=== PATIENT | male | born 1940 | race Caucasian/White ===

== ENCOUNTER 2020-01-10 15:50 | Emergency (ER) | payer MEDICARE, SELFPAY ==
--- NOTE | 2020-01-10 15:54 | ED.EAR ---
HPI - Ear Problem General Chief complaint: Skin/Abscess/Foreign Body Stated complaint: PIECE OF HEARING AID STUCK IN RIGHT EAR Time Seen by Provider: 01/10/20 15:54 Source: patient Mode of arrival: Ambulatory Limitations: no limitations History of Present Illness HPI Narrative: This is a pleasant 79-year-old male who comes to the emergency department with complaint of a piece of his hearing aid stuck in his right ear. Patient states that he thinks happened last night. He took his hearing aid out, he went to put it back in while he was watching TV and felt pain when he lifted at the cover piece that is normally inserted into the ear was missing. Patient states he tried several times he thinks he pushed it in deeper into the ear. He states it is uncomfortable but not painful. He denies any other symptoms or issues. Related Data Allergies Allergy/AdvReac Type Severity Reaction Status Date / Time No Known Drug Allergies Allergy Verified 01/10/20 16:57 Review of Systems Review of Systems ROS Unobtainable: All systems reviewed & are unremarkable except as noted in HPI and below Patient History Social History Smoking Status: Former smoker Exam Narrative Exam Narrative: GEN: well nourished, well appearing male, alert and oriented x 3, patient appears to be in mild distress. HEENT: Atraumatic, pupils are equal round reactive to light, extraocular movements are intact, and patient's right ear I am able to visualize a clear plastic cover for hearing aid, it is fairly deep, there is no erythema, swelling or other changes to the inner canal or outer ear. HEART: Regular rate and rhythm without murmur, clicks, rubs. LUNGS:Lungs clear to auscultation, no wheezes, rales, crackles, chest moves symmetrically ABD:bowel sounds normal, soft, non-tender, no guarding, rebound, rigidity, no masses noted, no hepatosplenomegaly MSCL: full range of motion, normal gait NEURO:CN 2-12 intact, sensation normal. Initial Vital Signs Initial Vital Signs: Vital Signs Temperature 97.2 F L 01/10/20 16:01 Pulse Rate 88 01/10/20 16:01 Respiratory Rate 13 01/10/20 16:01 Blood Pressure 196/104 H 01/10/20 16:01 Pulse Oximetry 97 01/10/20 16:01 Procedures Foreign Body EAR Location: ear canal (R) Foreign Body Suspected: other (cover of hearing aid) TM intact pre-procedure: yes If Insect Suspected: ear canal instilled with other (normal saline) Foreign Body Removal Technique: suction catheter (attempted irrigation without success, suction catheter and instrumentation but unable to visualize FB while attempting to remove. ) Tympanic Membrane Intact Post Procedure: No Patient Tolerated Procedure: No complications Complications: none Course Orders Ordered: Discontinued Medications Ofloxacin (Floxin 0.3% Otic) 5 drops EAR-LEFT NOW ONE Stop: 01/10/20 16:49 Last Admin: 01/10/20 16:57 Dose: 5 drops Documented by: FLORESITA Vital Signs Vital signs: Vital Signs - 8 hr 01/10/20 16:01 01/10/20 16:53 Temperature 97.2 F L Pulse Rate 88 63 Respiratory Rate 13 18 Blood Pressure 196/104 H Blood Pressure [Right Arm] 177/90 H Pulse Oximetry 97 99 Medical Decision Making MDM Narrative Medical decision making narrative: Spoke with Dr. Rivera, he is happy to see the patient 1st thing in the morning. We discussed that does appear that have abraded the side of the canal is small amount and he asked us to start some ofloxacin ophthalmic drops into the affected ear. Patient is to call at 8:00 a.m. and they will set up an appointment for him to come and have the foreign body removed. Discussed with patient he is aware the plan he is able to get to [place] in the morning and is comfortable with this plan. Discharge Plan Departure Patient Disposition: Home Clinical Impression: Acute foreign body of right ear Qualifiers: Encounter type: initial encounter Qualified Code(s): T16.1XXA - Foreign body in right ear, initial encounter Discharge Date/Time: 01/10/20 17:03 Activity Restrictions/Additional Instructions: Call at 8am for the ENT office, they will see you in the morning and remove the ear peice in there office in [place]. Use antibiotic ear drops, 10 drops daily until you see the ENT surgeon. Return for fevers, increasing pain, swelling of the ear, face or neck, new or bloody drainage or other new or concerning symptoms. Referrals: Henrik Rivera MD [Physician] -
[2020-01-10 16:01] VITALS: BP 196/104; PULSE 88; RESP 13; TEMP 36.2; O2SAT 97
[2020-01-10 16:53] VITALS: BP 177/90; PULSE 63; RESP 18; O2SAT 99
[2020-01-10] MEDS: OFLOXACIN 0.3% OTIC 5 ML 5 DROPS EAR-LEFT (16:57)
== END 2020-01-10 17:03 | disposition home or self-care (01) ==
PROVIDERS: Emergency Provider Emergency Medicine
DX: T16.1XXA Foreign body in right ear, initial encounter (principal)
CPT/HCPCS: 69200; 99282; 99283